=== PATIENT | male | born 1975 | race Caucasian/White ===

== ENCOUNTER → 2016-06-04 | Outpatient (CLI) | payer BC ==
[~2016-06-04] MED LIST: ASPI-808 PO; CIPR500T4 PO; HYDR-3812; HYDR-3876 PO; HYDR12.5; HYDR12.56 PO; LEVO500T2 PO; LISI40TA; LISI40TA PO; ONDA8TAB13 PO; OXYC-197 PO; PHEN-640 PO; TAMS0.4C2; TAMS0.4C2 PO; TAMS0.4C98 PO
--- OUTSIDE RECORDS SUMMARY | 2016-06-04 13:33 | XMS REPORT | Continuity of Care Document ---
Author Author [facility] Organization [facility] Address Unknown Phone Unavailable Care Team Providers Care Financial Auditor Name Role Phone NO, LOCAL PHYSICIAN PCP Unavailable Insurance Providers Payer Name Policy Number Subscriber Name Relationship [employer] [id number] Jamal Pineda 18 Self / Same As Patient Problems No known problems or medical conditions. Medications No known medications. Social History No social history. Hospital Discharge Instructions No hospital discharge instructions. Plan of Care No plan of care. Functional Status No functional status results. Allergies, Adverse Reactions, Alerts No known allergies. Immunizations No immunization records. Vital Signs No known vital signs results. Results No known relevant diagnostic tests, laboratory data and/or discharge summary. Procedures No known history of procedures. Encounters Encounter Location Date/Time Registered Clinic [facility] 03/09/14 9:17pm
--- NOTE | 2016-06-04 15:04 | Diagnostic Imaging Report ---
INDICATION: Right-sided abdominal pain. FINDINGS: Supine and upright abdominal images were obtained. There is a calcification projecting just below the right fourth transverse process that could be a 6 mm ureteral calculus. The bowel gas pattern is normal. IMPRESSION: Possible right ureteral calculus. Dictated by: Dictated on workstation # [id number]
== END ==
LOC: RAD 13:27
PROVIDERS: ATTEND Nurse Practitioner Community Health
DX: N20.0 Calculus of kidney (principal)
CPT/HCPCS: 74000

== ENCOUNTER 2016-06-05 12:00 | Emergency (ER) | payer BC ==
[~2016-06-05] VITALS: Ht 188 cm; Wt 193.7 kg
--- OUTSIDE RECORDS SUMMARY | 2016-06-05 12:06 | XMS REPORT | Continuity of Care Document ---
Author Author [facility] Organization [facility] Address Unknown Phone Unavailable Care Team Providers Care Sales Assoc Name Role Phone NO, LOCAL PHYSICIAN PCP Unavailable Insurance Providers Payer Name Policy Number Subscriber Name Relationship [employer] [id number] Jamal Pineda 19 Self / Same As [...] Encounters Encounter Location Date/Time Registered Clinic [facility] 03/09/14 9:17pm
[2016-06-05 12:41] LABS: BILIRUBIN,URINE NEGATIVE (NEGATIVE); KETONES,URINE NEGATIVE (NEGATIVE); LEUKOCYTE ESTERASE ,URINE NEGATIVE (NEGATIVE); NITRITE,URINE NEGATIVE (NEGATIVE); PH,URINE 6 (5-9); PROTEIN,URINE 1+ (NEGATIVE); UROBILINOGEN,URINE NORMAL (NORMAL)
[2016-06-05 12:51] LABS: WBC,URINE 0-2 /HPF
[2016-06-05 12:52] LABS: SQUAMOUS EPITHELIAL CELL,UR 0-2 /HPF
[2016-06-05] MEDS ORDERED: LISI40TA (13:02)
[2016-06-05] MEDS ORDERED: HYDR-3812 (13:02)
[2016-06-05] MEDS ORDERED: HYDR12.5 (13:02)
[2016-06-05] MEDS ORDERED: TAMS0.4C2 (13:02)
[2016-06-05] MEDS ORDERED: NS IV 1000 ML 1,000 ML IV ONE (13:11)
--- NOTE | 2016-06-05 13:11 | ED GU-Male ---
General Chief Complaint: Back Problems Stated Complaint: RIGHT FLANK PAIN Nursing Triage Note: pt complaining of right lower/mid abdominal pain. describes pain as intermittent and sharp. pt was seen in ER last saturday for similar symptoms. Source: patient, family (mother) Exam Limitations: no limitations History of Present Illness Time seen by provider: 12:50 Initial Comments 41 yo male patient presents to the ED with c/o rt flank pain radiating to the back. onset 1 wk ago. reports pain is intermittent and sharp. Patient was seen in the ED at [facility] on 05/27/16 and dx with a rt ureteral stone. Patient reports intermittent nausea w/o vomiting. denies fever. Timing/Duration: week, intermittent Severity/Quality: sharp Location: right flank Radiation: other (rt low back) Activities at Onset: none Prior Genitourinary Problems: similar symptoms Modifying Factors: Worsens With Palpation Allergies and Home Medications Allergies Coded Allergies: codeine (Verified Allergy, Unknown, 06/05/16) Home Medications Ciprofloxacin HCl 500 Mg Tablet #14 500 MG PO BID Prescribed by: TESFAYE MEDINA on 06/05/16 1431 Hydrochlorothiazide 12.5 Mg Capsule #30 (Reported) Hydrocodone/Acetaminophen 1 Each Tablet #30 (Reported) Lisinopril 40 Mg Tablet #30 (Reported) Ondansetron 8 Mg Tab.rapdis #10 8 MG PO Q6H PRN PRN NAUSEA/VOMITING Prescribed by: TESFAYE MEDINA on 06/05/16 143 Oxycodone HCl/Acetaminophen 1 Each Tablet #20 1 EACH PO Q4H PRN PRN PAIN Prescribed by: TESFAYE MEDINA on 06/05/16 143 Phenazopyridine HCl 200 Mg Tablet #30 1 TAB PO Q8H PRN PRN PAIN Prescribed by: TESFAYE MEDINA on 06/05/16 143 Tamsulosin HCl 0.4 Mg Cap.er.24h #7 (Reported) Tamsulosin HCl 0.4 Mg Cap.er.24h #10 0.4 MG PO DAILY Prescribed by: TESFAYE MEDINA on 06/05/16 143 Constitutional: No chills, No diaphoresis, No fever, No malaise Respiratory: no symptoms reported Cardiovascular: no symptoms reported Gastrointestinal: abdominal painNo constipation, No diarrhea, No loss of appetite, No melena, nauseaNo vomiting Genitourinary: denies burning, denies dysuria, denies frequency, flank paindenies hematuria, pain Musculoskeletal: see HPI back pain Skin: no symptoms reported Psychiatric/Neurological: No Symptoms Reported All Other Systemes Reviewed Negative Unless Noted: Yes (Negative excepted noted.) Past Kcbdxun-Xkqfrk-Vaqscd Hx Patient Social History Alcohol Use: Occasionally Uses Recreational Drug Use: No Smoking Status: Never a Smoker Recent Foreign Travel: No Contact w/Someone Who Travel: No Recent Infectious Disease Expo: No Recent Hopitalizations: No Surgeries Surgeries: Tonsillectomy Respiratory Hx Respiratory Disorders: No Cardiovascular Hx Cardiac Disorders: Yes Cardiac Disorders: Hypertension Neurological Hx Neurological Disorders: No Reproductive System Hx Reproductive Disorders: No Genitourinary Hx Genitourinary Disorders: No Gastrointestinal Hx Gastrointestinal Disorders: No Musculoskeletal Hx Musculoskeletal Disorders: No Endocrine Hx Endocrine Disorders: No HEENT HX ENT Disorders: No Cancer Hx Cancer: No Integumentary HX Skin/Integumentary Disorder: No Blood Transfusions Hx Blood Disorders: No Reviewed Nursing Assessment Reviewed/Agree w Nursing PMH: Yes Family Medical History Significant Family History: No Pertinent Family Hx Physical Exam Vital Signs Vital Sign - Last 12Hours 06/05/16 12:40 Temp 97.6 Pulse 88 Resp 18 B/P 145/79 Pulse Ox 96 O2 Delivery Room Air O2 Flow Rate 0 Capillary Refill : Less Than 3 Seconds General Appearance: WD/WN no apparent distress HEENT: PERRL/EOMI pharynx normal Neck: supple normal inspection Cardiovascular: normal peripheral pulses regular rate, rhythm no edema no murmur Respiratory: lungs clear normal breath sounds no respiratory distress Gastrointestinal: normal bowel sounds softNo distended, guarding (rt mid abdomen and rt flank)No rebound, tenderness (rt mid abd and flank) Back: normal inspection CVA tenderness (R)No CVA tenderness (L) Extremities: no pedal edema normal capillary refill Neurologic/Psychiatric: alert normal mood/affect oriented x 3 Skin: normal color warm/dry Progress/Results/Core Measures Results/Orders Lab Results Laboratory Tests Test 06/05/16 12:15 06/05/16 13:00 Range/Units Urine Bacteria TRACE /HPF Urine Bilirubin NEGATIVE NEGATIVE Urine Casts NONE /LPF Urine Clarity CLEAR Urine Color YELLOW Urine Crystals NONE /LPF Urine Culture Indicated YES Urine Glucose (UA) NEGATIVE NEGATIVE Urine Ketones NEGATIVE NEGATIVE Urine Leukocyte Esterase NEGATIVE NEGATIVE Urine Mucus MODERATE H /LPF Urine Nitrite NEGATIVE NEGATIVE Urine Protein 1+ H NEGATIVE Urine RBC >100 H /HPF Urine RBC (Auto) 5+ H NEGATIVE Urine Specific [place] 1.015 L 1.016-1.022 Urine Squamous Epithelial Cells 0-2 /HPF Urine Urobilinogen NORMAL NORMAL MG/DL Urine WBC 0-2 /HPF Urine pH 6 5-9 Alanine Aminotransferase (ALT/SGPT) 44 0-55 U/L Albumin 3.8 3.2-4.5 G/DL Alkaline Phosphatase 69 40-136 U/L Anion Gap 9 5-14 MMOL/L Aspartate Amino Transf (AST/SGOT) 24 5-34 U/L BUN/Creatinine Ratio 12 Basophils # (Auto) 0.0 0.0-0.1 10^3/uL Basophils (%) (Auto) 0 0-10 % Blood Urea Nitrogen 14 7-18 MG/DL Calcium Level 8.6 8.5-10.1 MG/DL Carbon Dioxide Level 25 21-32 MMOL/L Chloride Level 105 98-107 MMOL/L Creatinine 1.16 0.60-1.30 MG/DL Eosinophils # (Auto) 0.3 0.0-0.3 10^3/uL Eosinophils (%) (Auto) 2 0-10 % Estimat Glomerular Filtration Rate > 60 Glucose Level 131 H 70-105 MG/DL Hematocrit 43 40-54 % Hemoglobin 14.1 13.3-17.7 G/DL Lymphocytes # (Auto) 1.9 1.0-4.0 X 10^3 Lymphocytes (%) (Auto) 17 12-44 % Mean Corpuscular Hemoglobin 30 25-34 PG Mean Corpuscular Hemoglobin Concent 33 32-36 G/DL Mean Corpuscular Volume 90 80-99 FL Mean Platelet Volume 10.0 7.4-10.4 FL Monocytes # (Auto) 1.1 H 0.0-1.0 X 10^3 Monocytes (%) (Auto) 9 0-12 % Neutrophils # (Auto) 8.0 H 1.8-7.8 X 10^3 Neutrophils (%) (Auto) 71 42-75 % Platelet Count 289 130-400 10^3/uL Potassium Level 3.7 3.6-5.0 MMOL/L Red Blood Count 4.75 4.35-5.85 10^6/uL Red Cell Distribution Width 14.0 10.0-14.5 % Sodium Level 139 135-145 MMOL/L Total Bilirubin 0.3 0.1-1.0 MG/DL Total Protein 6.8 6.4-8.2 G/DL White Blood Count 11.3 H 4.3-11.0 10^3/uL My Orders Orders-TESFAYE MEDINA Iv 1000 Ml (Sodium Chloride 0.9%) (06/05/16 13:11) Abdomen/Kub 1view (06/05/16 13:36) Fentanyl Injection (Sublimaze Injection (06/05/16 14:38) Medications Given in ED Current Medications Medications Dose Ordered Sig/Diana Route Start Time Stop Time Status Last Admin Dose Admin Sodium Chloride 1,000 ml @ 0 mls/hr Q0M ONCE IV 06/05/16 13:11 06/05/16 13:18 DC 06/05/16 14:26 1,000 MLS/HR Vital Signs/I&O Vital Sign - Last 12Hours 06/05/16 12:40 Temp 97.6 Pulse 88 Resp 18 B/P 145/79 Pulse Ox 96 O2 Delivery Room Air O2 Flow Rate 0 Blood Pressure Mean: 101 Diagnostic Imaging Diagonstic Imaging: Xray Plain Films/CT/US/NM/MRI: abdomen Comments INDICATION: Nephrolithiasis. EXAMINATION: KUB. FINDINGS: The calculus in the right ureter has advanced about 2 cm down the ureter compared to yesterday's comparison study. IMPRESSION: There continues to be a calculus in the right mid ureter. Dictated on workstation # [id number] Reviewed: Reviewed by Me (radiology report reviewed by me. ) Departure Communication Progress Notes CT scan abd/pelvis done at [facility] on 05/27/16 reviewed. Findings show a low grade obstruction from a proximal right ureteric calculus measuring 6 mm x 7.5 mm. mild proximal ureterectasis and mild pyelocaliectasis. pelvic phleboliths. no further obstructing calculi. KUB done yesterday at [facility] as an outpatient reviewed showing a possible rt ureteral stone. 2939 Patient case discussed with Dr. Aguilera. Dr. Aguilera recommends f/u as an outpatient in his office tomorrow at 1600 as previously scheduled. All laboratory findings, diagnostic findings, and recommendations by Dr. Willy discussed with the patient. Patient voices understanding and agrees with the treatment plan. Impression Impression: Primary Impression: Ureteral calculi Disposition: 01 HOME, SELF-CARE Condition: Improved Departure-Patient Inst. Decision time for Depature: 14:27 Referrals: [facility] (PCP/Family) Primary Care Physician ALISHA AGUILERA MD Patient Instructions: Kidney Stones in Adults Add. Discharge Instructions: All discharge instructions reviewed with patient and/or family. Voiced understanding. Medications as instructed. Ibuprofen 800 mg by mouth every 8 hours as needed for pain. Strain all urines. Drink plenty of fluids including caffeinated beverages. Follow-up with Dr. Aguilera tomorrow at 4 p.m. as an outpatient for recheck. Return to the emergency department for worsened pain, fever, vomiting, inability to urinate, blood in the urine, or any other concerns. Scripts Tamsulosin HCl 0.4 Mg Cap.er.24h0.4 Mg PO DAILY #10 CAP Ref 0 Prov:TESFAYE MEDINA 06/05/16 Oxycodone HCl/Acetaminophen (Percocet 5-325 mg Tablet)1 Each Tablet1 Each PO Q4H PRN PAIN #20 TAB Ref 0 Prov:TESFAYE MEDINA 06/05/16 Ciprofloxacin HCl 500 Mg [id number] Mg PO BID #14 TAB Ref 0 Prov:TESFAYE MEDINA 06/05/16 Ondansetron (Ondansetron Odt)8 Mg Tab.rapdis8 Mg PO Q6H PRN NAUSEA/VOMITING #10 TAB Ref 0 Prov:TESFAYE MEDINA 06/05/16 Phenazopyridine HCl (Pyridium)200 Mg Tablet1 Tab PO Q8H PRN PAIN #30 TAB Ref 0 Prov:TESFAYE MEDINA 06/05/16 Work/School Note: Work Release Form Date Seen in the Emergency Department: Jun 05, 2016 Return to Work: Jun 07, 2016 Restrictions: No Restrictions Copy Copies To 1: ALISHA AUGILERA MD, GRETCHEN L PA Jun 05, 2016 13:11
[2016-06-05 13:14] LABS: BASOPHILS % (AUTO) 0 % (0-10); EOSINOPHILS # (AUTO) 0.3 10^3/uL (0.0-0.3); EOSINOPHILS % (AUTO) 2 % (0-10); LYMPHOCYTES # (AUTO) 1.9 X 10^3 (1.0-4.0); LYMPHOCYTES % (AUTO) 17 % (12-44); MEAN CORPUSCULAR HEMOGLOBIN 30 PG (25-34); MEAN CORPUSCULAR HGB CONC 33 G/DL (32-36); MEAN CORPUSCULAR VOLUME 90 FL (80-99); MONOCYTES # (AUTO) 1.1 X 10^3 (0.0-1.0); MONOCYTES % (AUTO) 9 % (0-12); NEUTROPHILS % (AUTO) 71 % (42-75); PLATELET COUNT 289 10^3/uL (130-400); RED BLOOD COUNT 4.75 10^6/uL (4.35-5.85); WHITE BLOOD COUNT 11.3 10^3/uL (4.3-11.0)
[2016-06-05 13:30] LABS: ALANINE AMINOTRANSFERASE 44 U/L (0-55); ALBUMIN 3.8 G/DL (3.2-4.5); ANION GAP 9 MMOL/L (5-14); ASPARTATE AMINO TRANSFERASE 24 U/L (5-34); BILIRUBIN,TOTAL 0.3 MG/DL (0.1-1.0); BLOOD UREA NITROGEN 14 MG/DL (7-18); BUN/CREATININE RATIO 12; CALCIUM 8.6 MG/DL (8.5-10.1); CARBON DIOXIDE 25 MMOL/L (21-32); CHLORIDE 105 MMOL/L (98-107); CREATININE SERUM 1.16 MG/DL (0.60-1.30); GFR ESTIMATED > 60; GLUCOSE 131 MG/DL (70-105); POTASSIUM 3.7 MMOL/L (3.6-5.0); SODIUM 139 MMOL/L (135-145); TOTAL PROTEIN 6.8 G/DL (6.4-8.2)
--- NOTE | 2016-06-05 13:57 | Diagnostic Imaging Report ---
INDICATION: Nephrolithiasis. EXAMINATION: KUB. FINDINGS: The calculus in the right ureter has advanced about 2 cm down the ureter compared to yesterday's comparison study. IMPRESSION: There continues to be a calculus in the right mid ureter. Dictated by: Dictated on workstation # [id number]
[2016-06-05] MEDS ORDERED: PHEN-640 PO (14:31)
[2016-06-05] MEDS ORDERED: OXYC-197 PO (14:31)
[2016-06-05] MEDS ORDERED: ONDA8TAB13 PO (14:31)
[2016-06-05] MEDS ORDERED: TAMS0.4C2 PO (14:31)
[2016-06-05] MEDS ORDERED: CIPR500T4 PO (14:31)
[2016-06-05] MEDS ORDERED: fentaNYL INJECTION 100 MCG/2 ML AMP IVP STA (14:38)
[2016-06-05 16:00] VITALS: BP 142/72
== END 2016-06-05 16:00 | disposition home or self-care (01) ==
LOC: EDUNIT# 12:00 → ER 12:02
DX: N20.1 Calculus of ureter (principal); Z79.899 Other long term (current) drug therapy
CPT/HCPCS: 36415; 74000; 80053; 81000; 85025; 87088; 96361; 96374

== ENCOUNTER 2016-06-12 12:30 | Outpatient (CLI) | payer BC ==
--- OUTSIDE RECORDS SUMMARY | 2016-06-11 06:17 | XMS REPORT | Continuity of Care Document ---
Author Author [facility] Organization [facility] Address Unknown Phone Unavailable Care Team Providers Care Termite Treater Helper Name Role Phone [facility] PCP Insurance Providers Payer Name Policy Number Subscriber Name Relationship [facility] [id number] Jamie Garcia 18 Self / Same As Patient Advance Directives Directive Response Recorded Date/Time Advance Directives No 06/05/16 12:54pm Resuscitation Status Full Code 06/05/16 12:54pm Chief Complaint and Reason for Visit Chief Complaint Back Problems Reason for Visit [id number] Problems Active Problems Medical Problem Onset Date Status Ureteral calculi Unknown Acute Ureterolithiasis Unknown Acute Medications Current Home Medications Medication Dose Units Route Directions Days/Qty Instructions Start Date Tamsulosin Hcl 0.4 Mg 7 06/05/16 Hydrocodone/Acetaminophen 1 Each 30 06/05/16 Lisinopril 40 Mg 30 06/05/16 Hydrochlorothiazide 12.5 Mg 30 06/05/16 Phenazopyridine Hcl 200 Mg 1 Tab Oral Every 8HRS as needed for Pain 30 06/05/16 Ondansetron 8 Mg 8 Mg Oral Every 6 Hours as needed for Nausea/Vomiting 10 06/05/16 Ciprofloxacin Hcl 500 Mg 500 Mg Oral Twice A Day 14 06/05/16 Oxycodone Hcl/Acetaminophen 1 Each 1 Each Oral Every 4HRS as needed for Pain 20 06/05/16 Tamsulosin Hcl 0.4 Mg 0.4 Mg Oral Daily 10 06/05/16 Social History Social History Problem Response Recorded Date/Time Alcohol Use Occasionally Uses 06/05/2016 12:54pm Recreational Drug Use No 06/05/2016 12:54pm Recent Foreign Travel No 06/05/2016 12:40pm Recent Infectious Disease Exposure No 06/05/2016 12:40pm Smoking Status Never a Smoker 06/05/2016 12:54pm Recent Hopitalizations No 06/05/2016 12:54pm Query Response Start Date Stop Date Smoking Status Never a Smoker Hospital Discharge Instructions No hospital discharge instructions. Plan of Care Discharge Date 06/05/16 4:00pm Disposition 01 HOME, SELF-CARE Condition at Discharge Improved Instructions/Education Provided Kidney Stones in Adults Forms Provided Work Release Form Prescriptions See Medication Section Referrals [facility] - Primary Care Physician [facility] - Primary Care Physician ALISHA GONZALES MD - Additional Instructions/Education All discharge instructions reviewed with patient and/or family. Voiced understanding. Medications as instructed. Ibuprofen 800 mg by mouth every 8 hours as needed for pain. Strain all urines. Drink plenty of fluids including caffeinated beverages. Follow-up with Dr. Gonzales tomorrow at 4 p.m. as an outpatient for recheck. Return to the emergency department for worsened pain, fever, vomiting, inability to urinate, blood in the urine, or any other concerns. Functional Status No functional status results. Allergies, Adverse Reactions, Alerts Allergen Type Severity Reaction Status Last Updated Codeine Allergy Unknown Active 06/05/16 Immunizations No immunization records. Vital Signs Acute Vital Signs Vital Response Date/Time Temperature (Fahrenheit) 97.6 degrees F (97.6 - 99.5) 06/05/2016 12:40pm Temperature (Calculated Celsius) 36.04669 degrees C (36.4 - 37.5) 06/05/2016 12:40pm Temperature Source Tympanic 06/05/2016 12:40pm Pulse Rate (adult) 88 bpm (60 - 90) 06/05/2016 12:40pm Respiratory Rate 18 bpm (12 - 24) 06/05/2016 12:40pm O2 Sat by Pulse Oximetry 96 % (88 - 100) 06/05/2016 12:40pm Blood Pressure 145/79 mm Hg 06/05/2016 12:40pm Blood Pressure Mean 101 mm Hg 06/05/2016 12:40pm Pain Numeric Pain Scale 6 06/05/2016 3:54pm Height (Feet) 6 feet 06/05/2016 12:40pm Height (Inches) 2 inches 06/05/2016 12:40pm Height (Calculated Centimeters) 187.862918 cm 06/05/2016 12:40pm Weight (Pounds) 427 pounds 06/05/2016 12:40pm Weight (Calculated Kilograms) 193.371286 kilograms 06/05/2016 12:40pm Capillary Refill Capillary Refill Less Than 3 Seconds 06/05/2016 12:40pm Height 6 ft 2 in Weight 427 lb Body Mass Index 54.8 kg/m^2 Results Pending Laboratory Results Test Name Collection Date/Time Procedures No known history of procedures. Encounters Encounter Location Arrival/Admit Date Discharge/Depart Date Attending Provider Departed Emergency Room [facility] 06/05/16 12:02pm 11/12 4:00pm TESFAYE MEDINA Registered Clinic [facility] 06/04/16 1:27pm CRUZ MALLOY Recent Diagnosis
[~2016-06-12] VITALS: Ht 188 cm; Wt 193.7 kg
[~2016-06-12 12:30] MED LIST changes: -ASPI-808 PO; -HYDR-3876 PO; -HYDR12.56 PO; -LEVO500T2 PO; -LISI40TA PO; -TAMS0.4C98 PO
[2016-06-12] MEDS ORDERED: ASPI-808 PO (12:49)
[2016-06-12] MEDS ORDERED: HYDR12.56 PO (12:49)
[2016-06-12] MEDS ORDERED: LISI40TA PO (12:49)
--- OUTSIDE RECORDS SUMMARY | 2016-06-12 12:57 | XMS REPORT | Continuity of Care Document ---
Author Author [facility] Organization [facility] Address Unknown Phone Unavailable Care Team Providers Care Tree Trimmer Helper Name Role Phone [facility] PCP Insurance Providers Payer Name Policy Number Subscriber Name Relationship [facility] [id number] Jamie Garcia 18 Self / Same As Patient Advance Directives Directive Response Recorded Date/Time Advance Directives No 06/05/16 12:54pm Resuscitation Status Full Code 06/05/16 12:54pm Chief Complaint and Reason for Visit Chief Complaint Back Problems Reason for Visit [id number] Problems Active Problems Medical Problem Onset Date [...] Release Form Prescriptions See Medication Section Referrals [facility] - Primary Care Physician [facility] - Primary Care Physician ALISHA GONZALES MD [...] - 99.5) 06/05/2016 12:40pm Temperature (Calculated Celsius) 36.10379 degrees C (36.4 - 37.5) 06/05/2016 12:40pm [...] 2 inches 06/05/2016 12:40pm Height (Calculated Centimeters) 187.107552 cm 06/05/2016 12:40pm Weight (Pounds) 427 pounds 06/05/2016 12:40pm Weight (Calculated Kilograms) 193.596290 kilograms 06/05/2016 12:40pm Capillary Refill Capillary Refill Less Than 3 Seconds 06/05/2016 12:40pm Height 6 ft 2 in Weight 427 lb Body Mass Index 54.8 kg/m^2 Results Pending Laboratory Results Test Name Collection Date/Time Procedures No known history of procedures. Encounters Encounter Location Arrival/Admit Date Discharge/Depart Date Attending Provider Departed Emergency Room [facility] 06/05/16 12:02pm 11/12 4:00pm TESFAYE MEDINA Registered Clinic [facility] 06/04/16 1:27pm CRUZ MALLOY Recent Diagnosis
[2016-06-13] MEDS ORDERED: PHEN-640 PO ×2 (09:25→11:39)
[2016-06-13] MEDS ORDERED: TAMS0.4C98 PO (09:25)
[2016-06-13] MEDS ORDERED: HYDR-3876 PO (11:35)
[2016-06-13] MEDS ORDERED: LEVO500T2 PO (11:35)
== END 2016-06-12 13:03 ==
LOC: PREOP 12:30
PROVIDERS: ATTEND Urology
DX: Z01.818 Encounter for other preprocedural examination (principal); N20.1 Calculus of ureter

== ENCOUNTER 2016-06-13 08:01 | Day surgery (SDC) | payer BC ==
[~2016-06-13] VITALS: Ht 188 cm; Wt 193.7 kg
[~2016-06-13 08:01] MED LIST changes: +ASPI-808 PO; +HYDR12.56 PO; +LISI40TA PO
[2016-06-13 08:08] VITALS: BP 149/89
--- OUTSIDE RECORDS SUMMARY | 2016-06-13 08:14 | XMS REPORT | Continuity of Care Document ---
Author Author [facility] Organization [facility] Address Unknown Phone Unavailable Care Team Providers Care Animal Park Code Enforcement Officer Name Role Phone [facility] PCP Insurance Providers Payer Name Policy Number Subscriber Name Relationship [facility] [id number] Jamie Garcia 18 Self / Same As Patient Advance Directives Directive Response Recorded Date/Time Advance Directives No 06/05/16 12:54pm Resuscitation Status Full Code 06/05/16 12:54pm Chief Complaint and Reason for Visit Chief Complaint Back Problems Reason for Visit [id number] Problems Active Problems Medical Problem Onset Date [...] See Medication Section Referrals [facility] - Primary Care Physician [facility] - Primary Care Physician ALISHA GONZALES [...] - 99.5) 06/05/2016 12:40pm Temperature (Calculated Celsius) 36.13425 degrees C (36.4 - 37.5) 06/05/2016 12:40pm [...] 2 inches 06/05/2016 12:40pm Height (Calculated Centimeters) 187.379284 cm 06/05/2016 12:40pm Weight (Pounds) 427 pounds 06/05/2016 12:40pm Weight (Calculated Kilograms) 193.342654 kilograms 06/05/2016 12:40pm Capillary Refill Capillary Refill Less Than 3 Seconds 06/05/2016 12:40pm Height 6 ft 2 in Weight 427 lb Body Mass Index 54.8 kg/m^2 Results Pending Laboratory Results Test Name Collection Date/Time Procedures No known history of procedures. Encounters Encounter Location Arrival/Admit Date Discharge/Depart Date Attending Provider Departed Emergency Room [facility] 06/05/16 12:02pm 11/12 4:00pm TESFAYE MEDINA Registered Clinic [facility] 06/04/16 1:27pm CRUZ MALLOY Recent Diagnosis
--- OUTSIDE RECORDS SUMMARY | 2016-06-13 08:14 | XMS REPORT | Continuity of Care Document ---
Author Author [facility] Organization [facility] Address Unknown Phone Unavailable Care Team Providers Care Mold Closer Helper Name Role Phone [facility] PCP Insurance Providers Payer Name Policy Number Subscriber Name Relationship [facility] [id number] Jamie Garcia 19 Self / Same As Patient Advance Directives Directive Response Recorded Date/Time Advance Directives No 06/05/16 12:54pm Resuscitation Status Full Code 06/05/16 12:54pm Chief Complaint and Reason for Visit Chief Complaint Back Problems Reason for Visit [id number] Problems Active Problems Medical Problem Onset Date [...] Release Form Prescriptions See Medication Section Referrals [facility] - Primary Care Physician [facility] - Primary Care Physician ALISHA GONZALES [...] - 99.5) 06/05/2016 12:40pm Temperature (Calculated Celsius) 36.92853 degrees C (36.4 - 37.5) 06/05/2016 12:40pm [...] 2 inches 06/05/2016 12:40pm Height (Calculated Centimeters) 187.490702 cm 06/05/2016 12:40pm Weight (Pounds) 427 pounds 06/05/2016 12:40pm Weight (Calculated Kilograms) 193.337447 kilograms 06/05/2016 12:40pm Capillary Refill Capillary Refill Less Than 3 Seconds 06/05/2016 12:40pm Height 6 ft 2 in Weight 427 lb Body Mass Index 54.8 kg/m^2 Results Pending Laboratory Results Test Name Collection Date/Time Procedures No known history of procedures. Encounters Encounter Location Arrival/Admit Date Discharge/Depart Date Attending Provider Departed Emergency Room [facility] 06/05/16 12:02pm 11/12 4:00pm TESFAYE MEDINA Registered Clinic [facility] 06/04/16 1:27pm CRUZ MALLOY Recent Diagnosis
[2016-06-13] MEDS ORDERED: cefTRIAXone 1 GM (ROCEPHIN) VIAL ONE (08:25)
[2016-06-13] MEDS ORDERED: NS (IVPB) 50 ML ONE (08:26)
[2016-06-13] MEDS ORDERED: FAMOTIDINE 20MG/2ML IV (PEPCID) IV ONE (08:30)
[2016-06-13] MEDS: LACTATED RINGERS 1,000 ML IV PRN ×2 (08:36→09:30)
[2016-06-13] MEDS ORDERED: ONDANSETRON 4 MG/2 ML (SDV) Z0FRAN ONE (08:42)
[2016-06-13] MEDS ORDERED: proPOfol 200 MG/20 ML (DIPRIVAN) VIAL IV ONE (08:42)
[2016-06-13] MEDS ORDERED: fentaNYL INJECTION 250 MCG/5 ML AMP ONE (08:42)
[2016-06-13] MEDS ORDERED: SEVOFLURANE (ULTANE) 15 ML INHAL SOLN ONE (08:42)
[2016-06-13] MEDS ORDERED: MIDAZOLAM 2 MG/2 ML (VERSED) VIAL ONE (08:42)
[2016-06-13] MEDS ORDERED: LIDOCAINE PF 2% 10 ML (XYLOCAINE) AMP ONE (08:42)
[2016-06-13] MEDS ORDERED: ROCURONIUM 50 MG/5 ML (ZEMURON) VIAL IV ONE (08:42)
--- NOTE | 2016-06-13 08:43 | Progress Note-Pre Operative ---
Pre-Operative Progress Note H&P Reviewed The H&P was reviewed, patient examined and no changes noted. Date H&P Reviewed: Jun 13, 2016 Time H&P Reviewed: 08:42 Pre-Operative Diagnosis: LT MID URETERAL STONE ALISHA GONZALES MD Jun 13, 2016 8:43 am
--- NOTE | 2016-06-13 08:45 | Progress Note-Post Operative ---
Post-Operative Progess Note Pre-Operative Diagnosis LT MID URETERAL STONE Post-Operative Diagnosis SAME Post-Op Procedure Note Date of Procedure: Jun 13, 2016 Name of Procedure: NAVNEET BLOOD URETEROSCOPY WITH RETROGRADE UROGRAM AND JJ STENT Anesthesia Type GENERAL ALISHA GONZALES MD Jun 13, 2016 8:45 am
[2016-06-13] MEDS ORDERED: cefTRIAXone 1 GM/NS 50 ML IVPB IV ONE ×2 (09:15)
[2016-06-13] MEDS ORDERED: TAMS0.4C98 PO (09:25)
[2016-06-13] MEDS ORDERED: PHEN-640 PO ×2 (09:25→11:39)
[2016-06-13] MEDS ORDERED: NEOSTIGMINE (BLOXIVERZ ) 1 MG/1ML 10 ML VIAL ONE (09:28)
[2016-06-13] MEDS ORDERED: GLYCOPYRROLATE 0.2 MG/ML (ROBINUL) 2 ML VIAL ONE (09:28)
[2016-06-13] MEDS ORDERED: LACTATED RINGERS 1,000 ML IV ONE (09:30)
--- NOTE | 2016-06-13 09:41 | Progress Note-Post Operative ---
Post-Operative Progess Note Pre-Operative Diagnosis LT MID URETERAL STONE Post-Operative Diagnosis SAME Post-Op Procedure Note Name of Procedure: CYSTO, RT URETEROSCOPY WITH RETROGRADE UROGRAM AND JJ STENT PLACEMENT Anesthesia Type GENERAL ALISHA GONZALES MD Jun 13, 2016 9:41 am
--- NOTE | 2016-06-13 09:44 | Discharge Inst-Urology ---
Discharge Inst-Urology Discharge Medications New, Converted, or Re-newed RX: RX given to Patient/Fam Patient Instructions/Follow Up Plan My office will arrange appointment with CHRISTIE DOMINGUEZ on way home Stay off ASA till sees CHRISTIE Increase oral fluids for 48 hours and then as needed. Diet and Activity as tolerated. If questions or concerns contact your physician Or seek help at emergency department. ALISHA GONZALES MD Jun 13, 2016 9:44 am
[2016-06-13] MEDS ORDERED: ONDANSETRON 4 MG/2 ML (SDV) Z0FRAN IVP PRN (10:00)
[2016-06-13] MEDS ORDERED: MEPERIDINE (DEMEROL) INJ 50 MG/ML IVP PRN (10:00)
[2016-06-13] MEDS ORDERED: morphine INJ 10 MG/ML 1ML (SYR OR VIAL) IVP PRN (10:00)
[2016-06-13] MEDS ORDERED: HYDROmorphone (DILAUDID) 2 MG/ML VIAL IVP PRN (10:00)
[2016-06-13 10:25] VITALS: BP 150/84
[2016-06-13] MEDS ORDERED: PHENAZOPYRIDINE 100 MG (PYRIDIUM) TABLET PO ONE (10:45)
[2016-06-13] MEDS ORDERED: HYDROcodone/APAP 10 MG/325 MG (LORTAB) TAB PO PRN (10:45)
[2016-06-13 11:05] VITALS: BP 142/75
[2016-06-13] MEDS ORDERED: HYDR-3876 PO (11:35)
[2016-06-13] MEDS ORDERED: LEVO500T2 PO (11:35)
[2016-06-13 11:45] VITALS: BP 131/75
[2016-06-13 12:08] VITALS: BP 131/75
--- NOTE | 2016-06-13 12:38 | Diagnostic Imaging Report ---
INDICATION: Nephrolithiasis EXAMINATION: KUB There is right-sided double-J ureteral stent passing from the renal pelvis to the urinary bladder. There are no appreciable calculi in the kidney although there is some fecal material which obscures the kidney partially. There is some calcified phleboliths in the pelvis. IMPRESSION: Right sided double-J ureteral stent appears to be in satisfactory position. Dictated by: Dictated on workstation # [id number]
--- NOTE | 2016-06-14 12:59 | OPERATIVE REPORT ---
PROCEDURE PHYSICIAN: ALISHA GONZALES DATE OF PROCEDURE: 06/13/2016 PREOPERATIVE DIAGNOSIS: Right mid ureteral stone. POSTOPERATIVE DIAGNOSIS: Right mid ureteral stone. OPERATION PERFORMED: 1. Cystoscopy. 2. Right ureteroscopy with retrograde urogram and insertion of right double-J stent. SURGEON: Willy. ANESTHESIA: General. COMPLICATIONS: None. PROCEDURE: Under satisfactory general anesthesia, the patient in lithotomy position, the genitalia were prepped and draped in the usual sterile fashion. Cystoscope was introduced under vision, the anterior urethra was normal. The prostate was not enlarged but had a median bar. The bladder was entered, essentially normal with mild trabeculations. Ureteric orifice is normal in shape, site and configuration with clear efflux, sluggish on the right side. Using the Foroblique lens, I dilated the right ureteral orifice, intramural portion to accommodate 6.9 Faroese semirigid ureteroscopy. I was unable to go all the way to the level of the stone, because of the semirigid nature and more importantly, the size of the patient weighing 425 pounds. I injected contrast . There was a question filling defect. Again it was very hard through fluoroscopy because of the size of the patient. I elected to put a stent. So I removed the ureteroscope, reinserted the cystoscope, passed a 6-Faroese 28 cm double-J stent, guided fluoroscopically all the way to the right renal pelvis with no problems. I removed the guidewire and the stent was seen J-ing nicely proximally, fluoroscopically and distally endoscopically. The bladder was evacuated and cystoscope was removed. The patient tolerated the procedure and anesthesia well and was sent to recovery room in stable condition. PLAN: Referred to [facility] for flexible ureteroscopy as the previous option given to the patient but he declined it. Job ID: [id number] Dictated Date: 06/13/2016 09:47:11 Paint Maker Date: 06/14/2016 12:53:50 / kenny
== END 2016-06-13 12:08 | disposition home or self-care (01) ==
LOC: SDC 08:01
PROVIDERS: ATTEND Urology
DX: N20.1 Calculus of ureter (principal)
CPT/HCPCS: 74000; 87081

== ENCOUNTER 2018-07-26 19:14 | Emergency (ER) | payer BC ==
[~2018-07-26] VITALS: Ht 188 cm; Wt 158.8 kg
[~2018-07-26 19:14] MED LIST changes: +ACHD5005; -HYDR-3812; +HYDR-3876 PO; +LEVO500T2 PO; -OXYC-197 PO; +OXYC1TAB87 PO; +TAMS0.4C98 PO
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
[2018-07-26] MEDS ORDERED: IBUP-1780 PO (19:46)
[2018-07-26] MEDS ORDERED: HYDR-4226 PO (19:46)
[2018-07-26 19:56] VITALS: BP 155/76
[2018-07-26] MEDS ORDERED: OXYMETAZOLINE (AFRIN) 0.05% NA 15 ML BTL SCH (21:00)
== END 2018-07-26 19:56 | disposition home or self-care (01) ==
LOC: EDUNIT# 19:14 → ER FS 19:17
DX: S02.2XXA Fracture of nasal bones, initial encounter for closed fracture (principal); G47.30 Sleep apnea, unspecified; I10 Essential (primary) hypertension; G43.909 Migraine, unspecified, not intractable, without status migrainosus; Z87.442 Personal history of urinary calculi; Z88.5 Allergy status to narcotic agent; Z87.891 Personal history of nicotine dependence; Z90.89 Acquired absence of other organs; X58.XXXA Exposure to other specified factors, initial encounter
CPT/HCPCS: 99283